=== PATIENT | male | born 1955 | race Caucasian/White ===

== ENCOUNTER 2016-12-01 07:09 | Inpatient (IN) | payer BC ==
[2016-11-11 13:22] VITALS: BMI 25.0
--- NOTE | 2016-11-11 14:08 | PAT Medication Instructions ---
Service Date Nov 11, 2016. Current Home Medication List Naproxen (Aleve), 440 MG PO QAM Paroxetine HCl (Paroxetine), 20 MG PO QAM [Zinc], 1 TAB PO QAM Medication Instructions For Your Scheduled Surgery Naproxen (Aleve), 440 MG PO QAM (check with Dr. Morales for instructions) - Hold the following medications 2 weeks prior to surgery: Zinc 1 TAB PO QAM - Take the following medications the morning of surgery with a sip of water: Paroxetine HCl (Paroxetine), 20 MG PO QAM If you have any questions please call us at [phone] or [phone] ( Brandi) or [phone]
[2016-11-11 14:51] LABS: BASO % 0.2 %; BASO ABS # 0.01 K/uL (0-0.2); COMPLETE YES; EOS % 0.8 %; HEMATOCRIT 42.1 % (42-52); IG% 0.2 %; LYMPH % 37.1 %; LYMPH ABS # 2.29 K/uL (1.2-3.4); MEAN CELL VOLUME 88.1 fL (80-100); MEAN CORPUSCULAR HEMOGLOBIN 29.3 pg (25-34); MEAN CORPUSCULAR HGB CONC 33.3 g/dl (32-36); MEAN PLATELET VOLUME 10.3 fL (7.4-10.4); MONO % 8.9 %; NEUT % 52.8 %; PLATELET COUNT 236 K/uL (130-400); RED BLOOD COUNT 4.78 M/uL (4.7-6.1); WHITE BLOOD COUNT 6.18 K/uL (4.8-10.8)
[2016-11-11 14:54] LABS: URINE APPEARANCE CLEAR (CLEAR); URINE BILIRUBIN NEG (NEG); URINE COLOR YELLOW; URINE NITRITE NEG (NEG); URINE SPECIFIC GRAVITY 1.028 (1.000-1.030); UROBILINOGEN NEG (NEG)
[2016-11-11 15:02] LABS: INR 0.9 (0.9-1.1); PARTIAL THROMBOPLASTIN RATIO 1.1; PROTHROMBIN TIME (PATIENT) 10.1 SECONDS (9.0-12.0)
[2016-11-11 15:05] LABS: MANUAL MICROSCOPIC REQUIRED? NO; REVIEW REQ? NO
--- NOTE | 2016-11-11 15:07 | DIAGNOSTIC IMAGING REPORT ---
TWO VIEW CHEST CLINICAL HISTORY: Preoperative examination. FINDINGS: PA and lateral chest radiographs are obtained. No prior studies are available for comparison at the time of dictation. The cardiomediastinal silhouette is unremarkable. The lungs and pleural spaces are clear. There is no pneumothorax. Small calcified granulomas are incidentally noted in the left lower lobe. The bony thorax appears intact. Degenerative change is seen throughout the thoracic spine. IMPRESSION: No active disease in the chest. Electronically signed by: Mikey Aj M.D. 11/11/2016 3:06 PM
[2016-11-11 15:27] LABS: ESTIMATED AVERAGE GLUCOSE 114 mg/dl; HA1C FLAG Normal (Normal)
[2016-11-11 15:39] LABS: BUN/CREATININE RATIO 23.8 (10-20)
[2016-11-11 15:50] LABS: CALCIUM 8.9 mg/dl (8.5-10.1)
--- NOTE | 2016-11-30 16:04 | HISTORY & PHYSICAL EXAMINATION ---
DATE OF ADMISSION: 12/01/2016 CHIEF COMPLAINT: Right hip pain. HISTORY OF PRESENT ILLNESS: The patient is a 61-year-old gentleman with known osteoarthritis about his right hip. He had a previous left total hip arthroplasty by an outside physician. He continues to have ongoing pain and disability with his right hip. He works as a dwyer by trade and is extremely difficult for him to do his required work activities. He now desires to proceed with right total hip arthroplasty. PAST MEDICAL HISTORY: Sleep apnea with CPAP use, depression, osteoarthritis. PAST SURGICAL HISTORY: Left hip as above, bilateral carpal tunnel surgery. MEDICATIONS: Finasteride 5 mg daily. ALLERGIES: INCLUDE SILK TAPE. SOCIAL HISTORY AND REVIEW OF SYSTEMS: Noncontributory. PHYSICAL EXAMINATION: GENERAL: Well-nourished, well-developed male who appears stated age. HEENT: Normocephalic, atraumatic, extraocular movements intact, oropharynx pink and moist. NECK: Supple without adenopathy. LUNGS: Clear to auscultation bilaterally. HEART: Regular rate and rhythm. ABDOMEN: Soft, nontender, nondistended. EXTREMITIES: The upper extremity within normal limits. The right hip demonstrates limited range of motion. There is limitation of active and passive internal/external rotation with pain at end range. X-RAYS: X-rays were reviewed. He has had a hip resurfacing on the left side. The right hip demonstrates a moderate to severe osteoarthritis with bone on bone arthritis and complete loss of the joint space. There is osteophyte formation about the femoral head and acetabulum. ASSESSMENT: Right hip degenerative joint disease. PLAN: Risks versus benefits were discussed. Consent was obtained. The patient's primary care physician is Dr. Wilde from [place]. Will proceed with right total hip arthroplasty upon preoperative workup and medical clearance.
[~2016-12-01] VITALS: Ht 182.9 cm; Wt 84.7 kg
[2016-12-01] VITALS (8 sets, daily range): BP systolic 100–153; BP diastolic 56–88; PULSE 69–98; TEMP 36.6–36.8; O2SAT 96–98; Ht 182.9 cm; Wt 84.7 kg
[~2016-12-01 07:09] MED LIST: ACETAMINOPHEN 500 MG TAB PO SCH; BUPIVACAINE 0.5 % 5 MG/1 ML PF 10ML VIAL ONE; CEFAZOLIN 2000 MG/60 ML D5W 60 ML IV SCH; CeleBREX 200 MG CAP PO SCH; DEXAMETHASONE 4 MG TAB PO SCH; GABAPENTIN 300 MG CAP PO SCH; LACTATED RINGER'S 1000ML 500 ML IV ONE; LACTATED RINGER'S 1000ML IV SCH; METOCLOPRAMIDE HCL 10 MG TAB PO SCH; MISSING PHYSICIAN SIGNATURE ON ORDER SCH; NAPR1TAB9 PO; PARO20TA3 PO; ROPIVACAINE 5MG/ML 30 ML 150 MG, BUPIVACAINE/EPINEPHR 0.5% MPF 30 ML, KETOROLAC TROMETH... INFIL SCH; TRANEXAMIC ACID INJ 1,000 MG in SODIUM CHLORIDE 0.9% 100ML 100 ML IV SCH; ZINC PO
[2016-12-01] MEDS ORDERED: PROPOFOL IV EMULSION 10 MG/ML 20 ML VIAL IV ONE (07:44)
[2016-12-01] MEDS ORDERED: LIDOCAINE HCL 2% 2 ML VIAL (20MG/ML) ONE (07:44)
[2016-12-01] MEDS ORDERED: MIDAZOLAM HCL 1 MG/ML 2ML VIAL ONE ×2 (07:44→09:12)
[2016-12-01] MEDS ORDERED: FENTANYL CITRATE INJ 50 MCG/1 ML 2 ML VIAL ONE (07:44)
[2016-12-01] MEDS ORDERED: ORTHO JOINT ANESTHETIC ONE (07:53)
--- NOTE | 2016-12-01 07:53 | History & Physical Bridge Note ---
H&P Re-Evaluation Bridge Note: I have examined the patient, reviewed the History & Physical and in the interval since the performance of the History & Physical I have noted the following changes of clinical significance: No changes noted
[2016-12-01] MEDS: TRANEXAMIC ACID INJ 1,000 MG in SODIUM CHLORIDE 0.9% 100ML 100 ML IV SCH ×2 (08:28→11:58)
[2016-12-01] MEDS ORDERED: LACTATED RINGER'S 1000ML 1,000 ML IV PRN (08:49)
[2016-12-01] MEDS ORDERED: EpHEDrine SULFATE 50MG/5ML SYR ONE (08:59)
[2016-12-01] MEDS ORDERED: PHENYLEPHRINE 100MCG/ML 5ML SYR ONE (08:59)
[2016-12-01] MEDS ORDERED: ONDANSETRON INJ 2 MG/ML 2 ML VIAL IV PRN ×2 (09:00→10:15)
[2016-12-01] MEDS ORDERED: FENTANYL CITRATE INJ 50 MCG/1 ML 2 ML VIAL IV PRN (09:00)
[2016-12-01] MEDS ORDERED: POVIDONE-IODINE OP SOLN 30 ML BTL TOP ONE (09:17)
[2016-12-01] MEDS ORDERED: BACITRACIN 50000 UNIT VIAL IR ONE (09:17)
--- NOTE | 2016-12-01 09:55 | OPERATIVE REPORT ---
DATE OF OPERATION: 12/01/2016 PREOPERATIVE DIAGNOSIS: Osteoarthritis right hip. POSTOPERATIVE DIAGNOSIS: Osteoarthritis right hip. PROCEDURE: Right connective total hip arthroplasty. SURGEON: Dr. Morales. SERVICE EMPLOYEE: Swapnil Abbott PA-C ANESTHESIA: Spinal. COMPLICATIONS: None. OPERATION AND FINDINGS: PROCEDURE: Following induction of adequate spinal anesthesia, the patient was placed in left lateral decubitus position and right Violet-Langenbeck incision was made. Subcutaneous tissue was sharply dissected. Electrocautery used for hemostasis. The fascia was incised throughout the length of the wound and a forte scissor placed beneath the short external rotators. The pyriformis was tagged with #1 Vicryl. The short external rotators were divided from the posterior aspect of the femur using electrocautery. These were swept posteriorly. A T-capsulotomy incision was made and the hip was dislocated using a combination of flexion, adduction, and internal rotation. Exposure of the femoral neck with old-style Hohmann and a blunt Hohmann was carried out and a femoral rasp was utilized as a guide for making the appropriate level femoral neck cut. This bone fragment was removed and reserved on the back table. Next, attention was turned to the acetabulum where bone hook was used to retract the femur while the offset retractors were placed anterior and posteriorly. A double-angled Hohmann was placed in superior and anterior position exposing the acetabulum nicely. Acetabular labrum as well as posterior capsule elements were removed using a long knife and a long pickup. Fovea centralis was cleared of all soft tissue. Sequential reamings were carried up to a 54 and decision was made to proceed with impaction of a 54 trabecular metal cup. This was impacted and held using a single 35 mm bone screw. The acetabular liner was placed with 15 of elevated posterior wall in the superior and posterior position. Next, attention was turned to the femoral portion of the case where a Bovie and pickup was used to further clear short external rotators from their insertion on the femur. Box osteotome was used to gain access to the femoral canal and the T-handled rasp and a rattail rasp were used to further open and lateral the canal. Sequentially raspings were carried up to a size 4 which gave good fit and fill of the proximal femur. A trial reduction was carried out and size 4 offset femoral neck component was chosen as the size to be used. A +0 x 36 mm ceramic femoral head was impacted into position, +0 head was utilized. The trial reduction was stable in all degrees of rotation with no [id number] impingement. The hip was dislocated. The trial components were removed and the final femoral stem, neck, and femoral head combination were assembled on the back table and impacted into position. Hip was relocated. Range of motion checked once again successful and the wound was irrigated. The pyriformis repaired to the greater trochanter using #1 Vicryl [id number] suture. A Hemovac drain was placed and the fascia was closed using #1 Vicryl, subcutaneous tissue was closed using 0 Dexon, and skin was closed with jaye. Sterile dressing of Adaptic, 4 x 4's, ABDs, and foam tape was applied. The patient tolerated the procedure well. Recovery room stable. Due to the complex nature of the procedure, the entire surgery was performed with the operational assistance of Swapnil Abbott PA-C. The assistant portfolio manager, under direct supervision, was involved in the actual performance of all aspects of the surgical procedure including hemostasis, tissue retraction and incision, instrument management, patient positioning, and wound closure. I attest to the content of the Intraoperative Record and any orders documented therein. Any exceptio ns are noted below.
[2016-12-01] MEDS ORDERED: MoRPHine SULFATE 2 MG/ML CARP IV PRN ×2 (10:15→12:30)
[2016-12-01] MEDS ORDERED: ALUMINUM/MAGNESIUM/SIMETH (MAALOX MAX) 30 ML UDC PO PRN (10:15)
[2016-12-01] MEDS ORDERED: DiphenhydrAMINE HCL 50 MG/ML VIAL IV PRN (10:15)
[2016-12-01] MEDS ORDERED: ZOLPIDEM TARTRATE 5 MG TAB PO PRN (10:15)
[2016-12-01] MEDS ORDERED: TAMSULOSIN HCL 0.4 MG CAP PO PRN (10:15)
[2016-12-01] MEDS ORDERED: BISACODYL 10 MG SUPP PR PRN (10:15)
[2016-12-01] MEDS ORDERED: MAGNESIUM HYDROXIDE SUSP 30 ML UDC PO PRN (10:15)
[2016-12-01] MEDS ORDERED: OXYCODONE HCL IR 5 MG TAB (IMMEDIATE RELEASE) PO PRN (10:15)
--- NOTE | 2016-12-01 10:33 | DIAGNOSTIC IMAGING REPORT ---
AP PELVIS, CROSSTABLE LATERAL RIGHT HIP History: Right total hip arthroplasty. Degenerative arthritis. Postop. FINDINGS: The patient is status post a right total hip arthroplasty. The hardware is intact. No fracture or dislocation. Skin jaye and surgical drains are in place. Evidence for prior left hip resurfacing. IMPRESSION: Right total hip arthroplasty. No evidence for hardware complication Electronically signed by: Nishant Tan M.D. 12/01/2016 10:31 AM
--- NOTE | 2016-12-01 11:03 | Anesthesiology Progress Note ---
Anesthesia Post Op Note Date & Time Dec 01, 2016 at 11:03 Vital Signs Pain Intensity: 0 Vital Signs Past 12 Hours Date Time Temp Pulse Resp B/P Pulse Ox O2 Delivery O2 Flow Rate FiO2 12/01/16 10:50 71 18 97/52 98 Nasal Cannula 2 12/01/16 10:40 75 15 93/50 97 Nasal Cannula 2 12/01/16 10:30 68 12 93/53 100 Nasal Cannula 2 12/01/16 10:20 70 14 117/51 100 Nasal Cannula 2 12/01/16 10:10 61 17 106/52 100 Nasal Cannula 2 12/01/16 10:01 36.1 74 16 96/53 99 Nasal Cannula 2 12/01/16 07:55 36.8 78 18 153/88 97 Room Air Notes Mental Status: alert / awake / arousable, participated in evaluation Pt Amnestic to Procedure: Yes Nausea / Vomiting: adequately controlled Pain: adequately controlled Airway Patency, RR, SpO2: stable & adequate BP & HR: stable & adequate Hydration State: stable & adequate Neuraxial Anesthesia: was administered, sensory block is resolving Anesthetic Complications: no major complications apparent
[2016-12-01] MEDS: D5W AND 1/2NSS + 20MEQ KCL 1,000 ML IV SCH ×2 (11:58→20:50)
[2016-12-01] MEDS ORDERED: MoRPHine SULFATE 10 MG/ML CARP/VIAL IV PRN (12:30)
[2016-12-01] MEDS ORDERED: MoRPHine SULFATE 4 MG/ML 1 ML CARP\\VIAL IV PRN (12:30)
[2016-12-01] MEDS: FERROUS GLUCONATE 324 MG TAB PO SCH ×2 (13:28→17:50)
[2016-12-01] MEDS: KETOROLAC TROMETHAMINE 30 MG/ML VIAL IV. SCH ×2 (13:29→20:49)
[2016-12-01] MEDS: ACETAMINOPHEN IV 1,000 MG in EMPTY BAG 0 ML IV SCH ×2 (13:29→20:49)
[2016-12-01] MEDS: CEFAZOLIN IV 2,000 MG in DEXTROSE 5% 50ML 50 ML IV SCH (16:53)
[2016-12-01] MEDS: DOCUSATE SODIUM 100 MG CAP PO SCH (20:50)
[2016-12-01] MEDS: SENNA 8.6 MG TAB PO SCH (20:50)
[2016-12-01] MEDS: ASPIRIN 81 MG ECTAB PO SCH (21:07)
[2016-12-02] MEDS: CEFAZOLIN IV 2,000 MG in DEXTROSE 5% 50ML 50 ML IV SCH (01:52)
[2016-12-02] MEDS: KETOROLAC TROMETHAMINE 30 MG/ML VIAL IV. SCH ×2 (01:53→08:58)
[2016-12-02 03:25] VITALS: BP 119/64; PULSE 80; TEMP 36.7; O2SAT 98
[2016-12-02] MEDS: ACETAMINOPHEN IV 1,000 MG in EMPTY BAG 0 ML IV SCH (05:27)
[2016-12-02] MEDS ORDERED: CEFAZOLIN 2000 MG/60 ML D5W 60 ML IV SCH (06:00)
[2016-12-02 06:42] LABS: COMPLETE YES; EOS % 0.1 %; HEMATOCRIT 33.7 % (42-52); IG% 0.1 %; LYMPH % 15.9 %; LYMPH ABS # 1.48 K/uL (1.2-3.4); MEAN CORPUSCULAR HEMOGLOBIN 29.2 pg (25-34); MEAN CORPUSCULAR HGB CONC 33.2 g/dl (32-36); MONO % 9.7 %; NEUT % 74.2 %; PLATELET COUNT 197 K/uL (130-400); RED BLOOD COUNT 3.83 M/uL (4.7-6.1)
[2016-12-02 07:14] LABS: CREATININE 0.93 mg/dl (0.60-1.40)
[2016-12-02 07:15] LABS: BUN/CREATININE RATIO 17.1 (10-20); CALCIUM 8.4 mg/dl (8.5-10.1)
--- NOTE | 2016-12-02 07:38 | Orthopedic Progress Note ---
Orthopedic Progress Note Date of Service Dec 02, 2016. Subjective Post OP Day: 1 Reports: feeling well Objective N/V intact, dressing C/D/I (Hemovac in place), toes mobile Date Time Temp Pulse Resp B/P Pulse Ox O2 Delivery O2 Flow Rate FiO2 12/02/16 03:25 36.7 80 14 119/64 98 Room Air 12/01/16 23:24 36.7 71 14 115/57 97 Room Air 12/01/16 22:25 Room Air 12/01/16 19:28 36.8 69 14 110/61 96 Room Air 12/01/16 19:05 Room Air 12/01/16 15:10 36.6 83 16 103/58 96 Nasal Cannula 1.0 12/01/16 15:05 Nasal Cannula 2.0 12/01/16 14:30 85 16 120/57 96 Nasal Cannula 2.0 12/01/16 12:40 98 Nasal Cannula 3.0 12/01/16 12:30 71 17 100/56 98 Nasal Cannula 2.0 12/01/16 12:30 98 16 115/57 97 Nasal Cannula 2.0 12/01/16 12:00 72 16 121/66 97 Nasal Cannula 2.0 12/01/16 11:34 98 Nasal Cannula 3.0 12/01/16 11:10 75 14 105/53 97 Nasal Cannula 2 12/01/16 11:00 36.5 82 15 106/56 97 Nasal Cannula 2 12/01/16 10:50 71 18 97/52 98 Nasal Cannula 2 12/01/16 10:40 75 15 93/50 97 Nasal Cannula 2 12/01/16 10:30 68 12 93/53 100 Nasal Cannula 2 12/01/16 10:20 70 14 117/51 100 Nasal Cannula 2 12/01/16 10:10 61 17 106/52 100 Nasal Cannula 2 12/01/16 10:01 36.1 74 16 96/53 99 Nasal Cannula 2 12/01/16 07:55 36.8 78 18 153/88 97 Room Air Laboratory Results 24 Hours: Test 12/02/16 05:15 White Blood Count 9.30 K/uL Red Blood Count 3.83 M/uL Hemoglobin 11.2 g/dL Hematocrit 33.7 % Mean Corpuscular Volume 88.0 fL Mean Corpuscular Hemoglobin 29.2 pg Mean Corpuscular Hemoglobin Concent 33.2 g/dl Platelet Count 197 K/uL Mean Platelet Volume 10.0 fL Neutrophils (%) (Auto) 74.2 % Lymphocytes (%) (Auto) 15.9 % Monocytes (%) (Auto) 9.7 % Eosinophils (%) (Auto) 0.1 % Basophils (%) (Auto) 0.0 % Neutrophils # (Auto) 6.90 K/uL Lymphocytes # (Auto) 1.48 K/uL Monocytes # (Auto) 0.90 K/uL Eosinophils # (Auto) 0.01 K/uL Basophils # (Auto) 0.00 K/uL Assessment & Plan Assessment: 61 yo male stable POD #1 s/p right ERIN Plan: 1. Med management 2. DVT prophylaxis- ASA, TEDs, SCDs 3. PT/OT 4. D/C planning- home w/ HH
[2016-12-02 08:03] VITALS: BP 138/82; PULSE 63; TEMP 36.7; O2SAT 98
[2016-12-02] MEDS: DOCUSATE SODIUM 100 MG CAP PO SCH ×2 (08:58→20:58)
[2016-12-02] MEDS: PANTOprazole SOD 40 MG TAB PO SCH (08:58)
[2016-12-02] MEDS: PAROXETINE 20 MG TAB PO SCH (08:58)
[2016-12-02] MEDS: MULTIVITAMIN TAB PO SCH (08:58)
--- NOTE | 2016-12-02 09:08 | Anesthesiology Progress Note ---
Anesthesia Post Op Note Date & Time Dec 02, 2016 at 09:07 Vital Signs Pain Intensity: 0.0 Vital Signs Past 12 Hours Date Time Temp Pulse Resp B/P Pulse Ox O2 Delivery O2 Flow Rate FiO2 12/02/16 08:03 36.7 63 16 138/82 98 Room Air 12/02/16 07:45 Room Air 12/02/16 03:25 36.7 80 14 119/64 98 Room Air 12/01/16 23:24 36.7 71 14 115/57 97 Room Air 12/01/16 22:25 Room Air Notes Mental Status: alert / awake / arousable, participated in evaluation Pt Amnestic to Procedure: Yes Nausea / Vomiting: adequately controlled Pain: adequately controlled Airway Patency, RR, SpO2: stable & adequate BP & HR: stable & adequate Hydration State: stable & adequate Anesthetic Complications: no major complications apparent
[2016-12-02] MEDS: ASPIRIN 81 MG ECTAB PO SCH ×2 (09:15→20:58)
[2016-12-02] MEDS: FERROUS GLUCONATE 324 MG TAB PO SCH ×3 (09:15→17:49)
[2016-12-02 09:31] VITALS: O2SAT 98
[2016-12-02 12:19] VITALS: BP 135/80; PULSE 62; TEMP 37.2; O2SAT 98
[2016-12-02 14:56] VITALS: BP 141/72; PULSE 80; TEMP 37.2; O2SAT 96
--- NOTE | 2016-12-02 17:05 | Discharge Instructions ---
Discharge Instructions Admission Reason for Admission: Osteoarthritis Of Hip-Right Hip Discharge Discharge Diagnosis / Problem: Right Total Hip Replacement Discharge Goals Goal(s): Decrease discomfort, Improve function, Increase independence Activity Recommendations Activity Limitations: as noted below Weightbearing Status: Right weightbearing (as tolerated) . Instructions / Follow-Up Instructions / Follow-Up ACTIVITY RECOMMENDATIONS: SELF CARE INSTRUCTIONS AFTER TOTAL HIP REPLACEMENT Until the incision and soft tissues around your hip have healed, there is a possibility that the hip prosthesis could dislocate. A. Observe the following precautions to prevent dislocation: 1. Don't bend your hip greater than 90 degrees. 2. Avoid crossing your legs or ankles while standing or lying. 3. Sit with your feet placed 6 inches apart. 4. When sitting, keep your knees below your hips. Sit on a firm surface, avoid deep, soft chairs and couches. Use an elevated toilet seat in the bathroom. 5. Don't bend over at the waist. Use a long handled shoehorn and a sock aid to help you put on your shoes and socks. A upsetter can help you cotton picker operator objects that are too high or too low to reach. 6. Keep car riding to a minimum for at least one month after surgery. B. Your balance may be shaky for a while. Use crutches or a walker until directed by your doctor. C. Use hand rails when walking on stairs. D. Wear low heeled shoes with non-slip soles. E. Be sure that your floors are free of things that could trip you - throw rugs , electrical cords, small objects. Avoid wet and waxed floors, especially with crutches and canes. F. Try to walk several times a day with rest periods between. G. Continue with all the exercises taught to you in the hospital. Again, make walking a part of your daily routine. SPECIAL CARE INSTRUCTIONS: VERY IMPORTANT TO READ AND REVIEW A. You may still be at risk for phlebitis and blood clots. 1. Wear surgical stockings (ROSMERY hose) for 2 weeks after surgery to improve circulation and reduce swelling. 2. Take Aspirin 81mg twice daily for 4 weeks or as directed by your doctor. This is your blood thinner. 3. High risk patients may be prescribed a stronger blood thinner if necessary. 4. If you are on Coumadin normally, your family doctor/boiler helper should monitor your blood work. Expect a phone call the day of or the day after bloodwork is drawn to adjust your dosage. B. You must take antibiotics before having dental work, bladder, bowel and other surgery. Your doctor will provide you with a permanent card to carry describing precautions. C. Call [facility] if you have a fever, redness or swelling around the incision, cloudy drainage from incision, or sudden increase in pain in your hip, not relieved by your regular pain medication. D. Please call the office at if you have any concerns or questions about your operation or recovery. * YOU MAY SHOWER, NO TUB BATHS UNTIL CLEARED BY YOUR DOCTOR. * WEAR ROSMERY HOSE 20 HOURS PER DAY FOR 2 WEEKS. * YOU SHOULD USE A WALKER OR CRUTCHES FOR 2-4 WEEKS. THIS WILL HELP PREVENT STRAIN ON YOUR HIP MUSCLE AND ALLOW IT TO HEAL PROPERLY. YOU MAY WEAN TO A CANE TOLERATED. * MOST PATIENTS WILL HAVE HOME NURSING FOR THERAPY. IF YOU DECIDE TO DO OUTPATIENT PHYSICAL THERAPY, PLEASE SCHEDULE THIS 3 TIMES PER WEEK. * YOU MAY HAVE A LARGE, BAND-RICCARDO LIKE DRESSING (SILVERON). THIS WILL REMAIN ON YOUR INCISION FOR 7 DAYS, THEN CAN BE REMOVED. IF INCISION IS LEAKING THROUGH DRESSING, PLEASE CALL THE OFFICE . FOLLOW UP VISIT: If appointment is not already scheduled: Please call [facility] to make a follow-up appointment for 2 weeks after your surgery at . Current Hospital Diet Patient's current hospital diet: Regular Diet Discharge Diet Recommended Diet: Regular Diet Procedures Procedures Performed: Right Total Hip Arthroplasty uncemented Pending Studies Studies pending at discharge: no Laboratory Results Hemoglobin A1c Test 11/11/16 14:14 Range/Units Estimated Average Glucose 114 mg/dl Hemoglobin A1c 5.6 4.5-5.6 % Medical Emergencies . Who to Call and When: Medical Emergencies: If at any time you feel your situation is an emergency, please call [phone] immediately. . Non-Emergent Contact Non-Emergency issues call your: Primary Care Provider, Surgeon . "Provider Documentation" section prepared by Polo Choi. VTE Core Measure Inpt VTE Proph given/why not?: Other Anticoagulation (ASA 81mg po bid x 1 month ), T.E.D. Stockings, SCD's
[2016-12-02] MEDS: SENNA 8.6 MG TAB PO SCH (20:59)
[2016-12-02] MEDS: CeleBREX 200 MG CAP PO SCH (21:00)
[2016-12-02 23:14] VITALS: BP 132/74; PULSE 71; TEMP 36.7; O2SAT 94
--- NOTE | 2016-12-03 06:17 | Orthopedic Progress Note ---
Orthopedic Progress Note Date of Service Dec 03, 2016. Subjective Post OP Day: 2 Reports: feeling well, pain controlled w PO medications, Denies: SOB, calf pain , chest pain, complaints, light headedness, nausea / vomiting Objective calves soft nontender, N/V intact, hip located, capillary refill less than 2 sec., incision C/D/I, A&O x3, toes mobile Date Time Temp Pulse Resp B/P Pulse Ox O2 Delivery O2 Flow Rate FiO2 12/03/16 00:10 Room Air 12/02/16 23:14 36.7 71 14 132/74 94 Room Air 12/02/16 19:05 Room Air 12/02/16 14:56 37.2 80 16 141/72 96 Room Air 12/02/16 12:19 37.2 62 16 135/80 98 Room Air 12/02/16 09:31 98 Room Air 12/02/16 08:03 36.7 63 16 138/82 98 Room Air 12/02/16 07:45 Room Air Assessment & Plan Assessment: 61 yo male stable POD #2 s/p right ERIN Plan: 1. Med management 2. DVT prophylaxis- ASA, TEDs, SCDs 3. PT/OT 4. D/C planning- home w/ HH
[2016-12-03 06:34] VITALS: BP 145/78; PULSE 71; TEMP 36.9; O2SAT 96
[2016-12-03] MEDS ORDERED: ASPEC81 PO (06:40)
[2016-12-03] MEDS ORDERED: CLB200 PO (06:40)
[2016-12-03] MEDS ORDERED: RXC5 PO (06:40)
[2016-12-03] MEDS ORDERED: CLC100 PO (06:40)
[2016-12-03] MEDS ORDERED: OXYSR/10 PO (06:40)
[2016-12-03] MEDS ORDERED: ONDA8TAB6 PO (06:40)
[2016-12-03] MEDS: DOCUSATE SODIUM 100 MG CAP PO SCH (07:28)
[2016-12-03] MEDS: MULTIVITAMIN TAB PO SCH (07:28)
[2016-12-03] MEDS: ASPIRIN 81 MG ECTAB PO SCH (07:28)
[2016-12-03] MEDS: FERROUS GLUCONATE 324 MG TAB PO SCH (07:28)
[2016-12-03] MEDS: PANTOprazole SOD 40 MG TAB PO SCH (07:28)
[2016-12-03] MEDS: CeleBREX 200 MG CAP PO SCH (07:29)
[2016-12-03] MEDS: PAROXETINE 20 MG TAB PO SCH (07:29)
[2016-12-03 07:39] VITALS: BP 145/60; PULSE 68; TEMP 37.1; O2SAT 97
[2016-12-03 07:45] VITALS: O2SAT 97
[2016-12-03 09:40] VITALS: BP 145/60; PULSE 68; TEMP 37.1; O2SAT 97
--- NOTE | 2016-12-07 16:44 | DISCHARGE SUMMARY ---
NOTICE TO RECEIVING CONSTITUTION PARTY/AGENCY This information is strictly Confidential and protected under [place] law. [place] law prohibits you from making any further disclosure of this information unless further disclosure is expressly permitted by the written consent of the person to whom it pertains or is authorized by law. A general authorization for the release of medical or other information is not sufficient for this purpose. Hospital accepts no responsibility if the information is made available to any other person, INCLUDING THE PATIENT. DISCHARGE DIAGNOSIS: Degenerative joint disease, right hip. SECONDARY DIAGNOSES: Sleep apnea with CPAP use, depression, osteoarthritis. CONSULTS: None. COMPLICATIONS: None. PROCEDURES: Right total hip arthroplasty performed by Dr. Morales on 12/01/2016. BRIEF HISTORY: As dictated in history and physical. HOSPITAL SUMMARY: The patient was admitted on the above-noted date and had the above-noted surgery performed which he tolerated well. On the first postoperative day, he was feeling well and had no complaints. Neurovascularly was intact. Dressings clean, dry and intact. Toes were mobile. Vital signs were stable. He was afebrile. Hemoglobin was 11.2 and he was started on physical therapy protocol and continued on DVT prophylaxis and pain management and ERIN precautions. By his second postoperative day, he continued to remain stable. Vital signs are stable. He was afebrile. Incision was clean, dry and intact. Toes were mobile. He was progressing well with his physical therapy and it was felt he could be discharged to home with home health services. For further review, please see chart. LAB AND X-RAY DATA: As per chart. DISCHARGE INSTRUCTIONS: The patient was discharged to home in satisfactory condition on 12/03/2016. DIET: Regular diet. ACTIVITY: Follow ERIN instruction sheets and special care instructions as noted. Follow up Dr. Morales in 2 weeks. The patient to call for appointment if one has not been made for you. DISCHARGE MEDICATIONS: Aspirin 81 mg p.o. b.i.d., Celebrex 200 mg p.o. b.i.d., Colace 100 mg p.o. b.i.d., Zofran 8 mg p.o. q. 8 hours p.r.n., oxycodone 5-10 mg p.o. q. 4 hours p.r.n., OxyContin 10 mg p.o. q.12 hours, paroxetine 20 mg p.o. q.a.m., zinc 1 tab p.o. q.a.m. and stop taking naproxen.
== END 2016-12-03 10:41 | disposition home or self-care (01) | DRG 470 ==
LOC: ENRESERVTM → ENRESERVDT → C.ACU 07:09 → C.3E 10:10
PROC: 0SR903Z Replacement of Right Hip Joint with Ceramic Synthetic Substitute, Open Approach (ICD-10-PCS; principal; 2016-12-01 09:00)
DX: M16.11 Unilateral primary osteoarthritis, right hip (principal); G47.30 Sleep apnea, unspecified

== ENCOUNTER → 2016-12-14 | Outpatient (CLI) | payer BC, OTHER ==
[~2016-12-14] MED LIST changes: -ACETAMINOPHEN 500 MG TAB PO SCH; +ASPEC81 PO; -BUPIVACAINE 0.5 % 5 MG/1 ML PF 10ML VIAL ONE; -CEFAZOLIN 2000 MG/60 ML D5W 60 ML IV SCH; +CLB200 PO; +CLC100 PO; -CeleBREX 200 MG CAP PO SCH; -DEXAMETHASONE 4 MG TAB PO SCH; -GABAPENTIN 300 MG CAP PO SCH; -LACTATED RINGER'S 1000ML 500 ML IV ONE; -LACTATED RINGER'S 1000ML IV SCH; -METOCLOPRAMIDE HCL 10 MG TAB PO SCH; -MISSING PHYSICIAN SIGNATURE ON ORDER SCH; -NAPR1TAB9 PO; +ONDA8TAB6 PO; +OXYSR/10 PO; -ROPIVACAINE 5MG/ML 30 ML 150 MG, BUPIVACAINE/EPINEPHR 0.5% MPF 30 ML, KETOROLAC TROMETH... INFIL SCH; +RXC5 PO; -TRANEXAMIC ACID INJ 1,000 MG in SODIUM CHLORIDE 0.9% 100ML 100 ML IV SCH
== END | disposition home or self-care (01) ==
LOC: C.LAB 13:04
DX: M16.11 Unilateral primary osteoarthritis, right hip (principal)